=== PATIENT | female | born 1970 | race Caucasian/White ===

== ENCOUNTER → 2016-10-08 | Outpatient (CLI) | payer OTHER | LOC: CIMAGING 10:55 | PROVIDERS: ATTEND Family Medicine | DX: M25.551 Pain in right hip (principal) | CPT/HCPCS: 73502-PO ==

== ENCOUNTER 2016-10-11 20:29 | Emergency (ER) | payer OTHER ==
[2016-10-11] MEDS ORDERED: NS 1,000 ML IV ONE ×2 (20:51→21:28)
[2016-10-11 20:59] LABS: % IMMATURE GRANULYOCYTES 0.3 % (0.0-1.1); ABSOLUTE IMMATURE GRANULOCYTES 0.03 10^3/uL (0.00-0.10); ADD DIFF? NO; ADD MORPH? NO; ADD SCAN? NO; ATYPICAL LYMPHOCYTE FLAG 0 (0-99); FRAGMENT RBC FLAG 0 (0-99); HEMATOCRIT 42.5 % (38.0-47.0); HEMOGLOBIN 14.4 g/dL (12.6-16.3); LEFT SHIFT FLG 0 (0-99); LIPEMIA HEMOLYSIS FLAG 90 (0-99); MEAN CELL HEMOGLOBIN 31.2 pg (27.9-34.1); MEAN CELL HEMOGLOBIN CONCENTR. 33.9 g/dL (32.4-36.7); MEAN PLATELET VOLUME 9.1 fL (8.7-11.7); PLATELET CLUMPS FLAG 0 (0-99); PLATELET COUNT 371 10^3/uL (150-400); RED BLOOD CELL COUNT 4.62 10^6/uL (4.18-5.33); RED CELL DISTRIBUTION WIDTH 13.2 % (11.5-15.2)
[2016-10-11 21:07] VITALS: RESP 18; TEMP 98.1; O2SAT 96
--- NOTE | 2016-10-11 21:08 | UCPHY ---
H & P Patient Type: Established Time Seen by Provider: 10/11/16 21:00 HPI/ROS: CHIEF COMPLAINT: mild cough, lower abdominal distress, low-grade fever, persistent nausea HISTORY OF PRESENT ILLNESS: this is a medically complicated, 46-year-old female without a history of underlying gastroparesis. She has had diabetes for approximately 16 years. She notes that for 2 and half days now she has had general feeling of unwell, moderate nausea without vomiting, no diarrhea, and some mild suprapubic abdominal distress. There was some episodes of dysuria in the past 24 hours, but not every time she would urinate. She did take some azo dye in the hope that cleared up things. She has noted some decreased urinary output despite her sugars running in the 150-200 range. Thus today she push fluids taking approximately 2 quarts fluids. Her PE/DVT history is not correlated with postsurgical state. She had a spontaneous right upper extremity DVT that gave her an embolus. There was no PICC line associated with this P: Not worse standing or moving Q: Achiness R: Suprapubic without radiation S: [id number] T: For the last 2 and half days She is status post exploratory laparotomy for endometriosis and appendectomy many years ago REVIEW OF SYSTEMS: Constitutional: No fever, no chills. Eyes: No discharge ENT: No sore throat. Cardiovascular: No chest pain, no palpitations. Respiratory: Mild cough, bbut no shortness of breath, or wheezing. Gastrointestinal: See above. Genitourinary: No hematuria or frequency. Musculoskeletal: No back pain. Skin: No rashes. Neurological: No headache. 10 point ROS otherwise negative Source: Patient Exam Limitations: No limitations - Medical/Surgical History Hx Asthma: Yes Hx Chronic Respiratory Disease: No Hx Diabetes: Yes Hx Cardiac Disease: No Hx Renal Disease: No Hx Cirrhosis: No Hx Alcoholism: No Hx Splenectomy or Spleen Trauma: No Other PMH: IBS, seizures, PE and Blood Clots, Endometrosis, scholosis, appy, tubal, uterine ablation, ortho surgeries - Family History Significant Family History: No pertinent family hx - Social History Smoking Status: Never smoked Alcohol Use: None Drug Use: None - Physical Exam Exam: General Appearance: Alert, no distress. Afebrile. Normal phonation. No respiratory distress. Eyes: Pupils equal and round no pallor or injection. No icterus ENT, Mouth: Mucous membranes dry, tongue is yellow but she describes that to the yellow Gatorade she was drinking Pharynx without erythema or exudate. TM Clear. Neck: No adenopathy. Supple. No JVD. Trachea in midline. Respiratory: There are no retractions, lungs are clear to auscultation. Cardiovascular: Regular rate and rhythm, without murmur Abdomen: Soft bilateral lower quadrant tender, no masses, bowel sounds normal. Neurological: Ox3. No motor weakness. Sensation intact. Gait nl. Skin: Warm and dry, no rashes. Musculoskeletal: No joint swelling. Extremities: No edema. Homans sign negative. No cords. Psychiatric: Normal affect. Patient is oriented X 3, there is no agitation. Constitutional: Initial Vital Signs Temperature (C) 36.7 C 10/11/16 21:04 Heart Rate 80 10/11/16 21:04 Respiratory Rate 18 10/11/16 21:04 Blood Pressure 112/78 10/11/16 21:04 O2 Sat (%) 96 10/11/16 21:04 O2 Delivery Mode Room Air Allergies/Adverse Reactions: metformin Allergy (Verified 10/11/16 20:45) phenytoin sodium [From Dilantin] Allergy (Verified 10/11/16 20:45) phenytoin sodium extended [From Dilantin] Allergy (Verified 10/11/16 20:45) pneumococcal 23-valent polysacchari [From Pneumovax 23] Allergy (Verified 20:45) Home Medications: Medication Instructions Recorded Advair 250/50 (*) 04/30/16 Albuterol 04/30/16 Desiree Allergy 04/30/16 BIOTIN 04/30/16 Benzonatate 04/30/16 CYCLOBENZAPRINE HCL 04/30/16 Clonazepam 04/30/16 Coumadin 04/30/16 Creon 24 (*) 04/30/16 Dicyclomine 04/30/16 Drysol 04/30/16 FLUTICASONE PROPIONATE 04/30/16 Fish Oil 04/30/16 Humalog 04/30/16 Lantus Solostar 04/30/16 Lexapro 04/30/16 Oxycodone HCl 04/30/16 Oxycontin 04/30/16 PROMETHAZINE HCL 04/30/16 Promethazine HCl [Phenergan 50mg 50 mg NE Q6 PRN #3 suppr 04/30/16 supp (*)] Protonix 04/30/16 Singulair 04/30/16 Tricor 04/30/16 VITAMIN B COMPLEX 04/30/16 VITAMIN E 04/30/16 Vimpat 04/30/16 Vitamin D3 (*) 04/30/16 Medical Decision Making ED Course/Re-evaluation: She was given a L of normal saline over an hour and then another L over an hour and a half for total of 2 L for her volume depletion. She also received 8 mg of IV Zofran. Given the mild anion gap elevation as well as low CO2 though normal lactic acid , a serum beta hydroxybutyrate has been ordered. this is a "send out" to [facility]. Upon initial evaluation I recommended a chest x-ray given the cough and moderate fever at home as high as 101.6, as well as a CT scan of the abdomen given the mild suprapubic abdominal tenderness in the setting of fever as well, With a concern for diverticulitis. however, she has declined both. She is aware of the potential need for her to return, perhaps in a more dire clinical circumstance with worse prognosis. She has been warned, which she accepts and congenial fashion. Whereas she was seemingly going to stay for the full evaluation of the beta hydroxybutyrate, at 10:30 p.m. she was finished with the 2nd L of fluid and was ready to go home from her perspective thus did not want to stay for the final result. Furthermore, she should be signing out against medical advice as she declined the chest x-ray and CT scan which would be necessary for full evaluation. She was given a welcomed, reasoned invitation to return should she have 2nd thoughts. Ultimately, and fortunately, indeed the beta hydroxybutyrate result was normal as of 11:20 p.m. thus she received appropriate 2 L infusion while here. However workup remains to be unclear as there is no source of fever with potential sources not investigated such as pulmonary or GI/diverticulitis. Differential Diagnosis: Differential diagnosis includes, but is not limited to: Gastroenteritis, dehydration, diverticulitis, gastritis, mesenteric adenitis, food poisoning. - Data Points Laboratory Results: Laboratory Results 10/11/16 20:46 10/11/16 20:46 0410/11/16 10/11/16 21:35 20:50 20:46 WBC RBC Hgb Hct MCV MCH MCHC RDW Plt Count MPV Neut % (Auto) Lymph % (Auto) [place] % (Auto) Eos % (Auto) Baso % (Auto) Nucleat RBC Rel Count Absolute Neuts (auto) Absolute Lymphs (auto) Absolute Monos (auto) Absolute Eos (auto) Absolute Basos (auto) Absolute Nucleated RBC Immature Gran % Immature Gran # PT INR VBG Lactic Acid 1.5 mmol/L mmol/L (0.7-2.1) Sodium Potassium Chloride Carbon Dioxide Anion Gap BUN Creatinine Estimated GFR Glucose Calcium Beta-Hydroxybutyrate 0.06 mmol/L mmol/L (0.02-0.27) Urine Color YELLOW Urine Appearance CLEAR Urine pH 6.0 (5.0-7.5) Ur Specific [place] <= 1.005 (1.002-1.030) Urine Protein NEGATIVE (NEGATIVE) Urine Ketones NEGATIVE (NEGATIVE) Urine Blood NEGATIVE (NEGATIVE) Urine Nitrate NEGATIVE (NEGATIVE) Urine Bilirubin NEGATIVE (NEGATIVE) Urine Urobilinogen 0.2 EU EU (0.2-1.0) Ur Leukocyte Esterase NEGATIVE (NEGATIVE) Ur Culture Indicated? NOT INDICATED (NI) Urine Glucose NEGATIVE (NEGATIVE) 10/11/16 10/11/16 10/11/16 20:46 20:46 20:46 WBC 11.30 10^3/uL H 10^3/uL (3.80-9.50) RBC 4.62 10^6/uL 10^6/uL (4.18-5.33) Hgb 14.4 g/dL g/dL (12.6-16.3) Hct 42.5 % % (38.0-47.0) MCV 92.0 fL fL (81.5-99.8) MCH 31.2 pg pg (27.9-34.1) MCHC 33.9 g/dL g/dL (32.4-36.7) RDW 13.2 % % (11.5-15.2) Plt Count 371 10^3/uL 10^3/uL (150-400) MPV 9.1 fL fL (8.7-11.7) Neut % (Auto) 55.9 % % (39.3-74.2) Lymph % (Auto) 34.8 % % (15.0-45.0) [place] % (Auto) 6.9 % % (4.5-13.0) Eos % (Auto) 1.5 % % (0.6-7.6) Baso % (Auto) 0.6 % % (0.3-1.7) Nucleat RBC Rel Count 0.0 % % (0.0-0.2) Absolute Neuts (auto) 6.32 10^3/uL 10^3/uL (1.70-6.50) Absolute Lymphs (auto) 3.93 10^3/uL H 10^3/uL (1.00-3.00) Absolute Monos (auto) 0.78 10^3/uL 10^3/uL (0.30-0.80) Absolute Eos (auto) 0.17 10^3/uL 10^3/uL (0.03-0.40) Absolute Basos (auto) 0.07 10^3/uL 10^3/uL (0.02-0.10) Absolute Nucleated RBC 0.00 10^3/uL 10^3/uL (0-0.01) Immature Gran % 0.3 % % (0.0-1.1) Immature Gran # 0.03 10^3/uL 10^3/uL (0.00-0.10) PT 14.6 SEC SEC (12.0-15.0) INR 1.17 H (0.83-1.16) VBG Lactic Acid Sodium 140 mEq/L mEq/L (134-144) Potassium 4.1 mEq/L mEq/L (3.5-5.2) Chloride 104 mEq/L mEq/L (97-110) Carbon Dioxide 19 mEq/l L mEq/l (22-31) Anion Gap 17 mEq/L H mEq/L (8-16) BUN 13 mg/dL mg/dL (7-23) Creatinine 0.6 mg/dL mg/dL (0.6-1.0) Estimated GFR > 60 Glucose 152 mg/dL H mg/dL (70-100) Calcium 10.6 mg/dL H mg/dL (8.5-10.4) Beta-Hydroxybutyrate Urine Color Urine Appearance Urine pH Ur Specific [place] Urine Protein Urine Ketones Urine Blood Urine Nitrate Urine Bilirubin Urine Urobilinogen Ur Leukocyte Esterase Ur Culture Indicated? Urine Glucose Medications Given: Discontinued Medications Sodium Chloride (Ns) 1,000 mls @ 0 mls/hr IV ONCE ONE PRN Reason: Wide Open Stop: 10/11/16 20:52 Last Admin: 10/11/16 20:45 Dose: 1,000 mls Sodium Chloride (Ns) 1,000 mls @ 0 mls/hr IV ONCE ONE PRN Reason: As Directed Stop: 10/11/16 21:29 Last Admin: 10/11/16 21:45 Dose: 1,000 mls Ondansetron HCl (Zofran) 8 mg IVP ONCE ONE Stop: 10/11/16 21:56 Last Admin: 10/11/16 22:56 Dose: Not Given Departure - Departure Disposition: Home, Routine, Self-Care Clinical Impression: Dehydration, Fever by history Abdominal pain Qualifiers: Abdominal location: lower abdomen, unspecified Qualified Code(s): R10.30 - Lower abdominal pain, unspecified Condition: Good Instructions: Dehydration (ED), Acute Abdominal Pain (ED) Additional Instructions: You certainly may come back at any time, however you are being signed out against medical advice as you have not completed the full evaluation including the full labs as well as chest x-ray and CT scan there were recommended. Yes, we certainly can do those tests tomorrow if your symptoms continue, and you return.. In the meantime, continue her Zofran and Phenergan for symptomatic improvement of the nausea to have. Also, continue to monitor your blood sugars. Realized that her initial testing suggest there might be some acidemia in your blood which may require overnight ER hydration. This lab tests will not be back for another 30-45 minutes. When you are able to resume a normal diet, introduce foods progressively over the course of 24 hours. Starting 1st with clear liquids, then full liquids, then a soft foods, then regular diet. Referrals: NONE *PRIMARY CARE P,. [Primary Care Provider] - As per Instructions - PQRS PQRS Measurement: not applicable
[2016-10-11 21:21] LABS: INR 1.17 (0.83-1.16); PROTIME(PATIENT) 14.6 SEC (12.0-15.0)
[2016-10-11 21:34] LABS: ANION GAP 17 mEq/L (8-16); CALCIUM 10.6 mg/dL (8.5-10.4); CARBON DIOXIDE 19 mEq/l (22-31); CHLORIDE 104 mEq/L (97-110); CREATININE 0.6 mg/dL (0.6-1.0); GLOMERULAR FILTRATION RATE > 60; GLUCOSE 152 mg/dL (70-100); POTASSIUM 4.1 mEq/L (3.5-5.2); SODIUM 140 mEq/L (134-144)
[2016-10-11 21:41] LABS: COLOR YELLOW; LEUKOCYTE ESTERASE,URINE NEGATIVE (NEGATIVE); NITRITE,URINE NEGATIVE (NEGATIVE)
[2016-10-11 21:55] VITALS: BP 119/78; PULSE 84
[2016-10-11] MEDS ORDERED: ONDANSETRON 4 MG/2 ML VIAL IVP ONE (21:55)
== END 2016-10-11 22:52 | disposition home or self-care (01) ==
LOC: CED 20:29
DX: E86.0 Dehydration (principal); R10.30 Lower abdominal pain, unspecified; R50.9 Fever, unspecified; R11.0 Nausea; R30.0 Dysuria; K58.9 Irritable bowel syndrome, unspecified; N80.9 Endometriosis, unspecified
CPT/HCPCS: 80048-PO; 81003-PO; 83605-PO; 85025-PO; 85610-PO; 96360-PO; 96361-PO; 99215-PO; G0463-PO

== ENCOUNTER → 2017-04-29 | Outpatient (CLI) | payer OTHER | LOC: CIMAGING 17:18 | PROVIDERS: ATTEND Family Medicine | DX: M79.671 Pain in right foot (principal); M79.604 Pain in right leg | CPT/HCPCS: 73590-PO; 73630-PO ==

== ENCOUNTER 2017-10-20 18:23 | Emergency (ER) | payer OTHER ==
[2017-10-20] MEDS ORDERED: NS 2,000 ML IV ONE (18:39)
--- NOTE | 2017-10-20 18:43 | EDPHY ---
H & P Stated Complaint: Dehydrated, IDDM, showing ketones in urine. Time Seen by Provider: 10/20/17 18:32 HPI/ROS: CHIEF COMPLAINT: Dehydration HISTORY OF PRESENT ILLNESS: Patient is a 47-year-old female with a history of a chronically inflamed stomach as well as diabetes and states she has occasionally has gastroparesis. She comes to the emergency department and states that she has had abdominal cramping and diarrhea today and feels dehydrated. She turned down her insulin pump. Her sugars have been okay. She does not want a bunch of testing but simply wants to get hydrated. She has been taking anti nausea medicine at home. No fevers. REVIEW OF SYSTEMS: Constitutional: denies: chills, fever, recent illness, recent injury EENTM: denies: blurred vision, double vision, nose congestion Respiratory: denies: cough, shortness of breath Cardiac: denies: chest pain, irregular heart rate, lightheadedness, palpitations Gastrointestinal/Abdominal: See HPI Genitourinary: denies: dysuria, frequency, hematuria, pain Musculoskeletal: denies: joint pain, muscle pain Skin: denies: lesions, rash, jaundice, bruising Neurological: denies: headache, numbness, paresthesia, tingling, dizziness, weakness Hematologic/Lymphatic: denies: blood clots, easy bleeding, easy bruising Immunologic/allergic: denies: HIV/AIDS, transplant EXAM: GENERAL: Mild distress. Overweight HEAD: Atraumatic, normocephalic. EYES: Pupils equal round and reactive to light, extraocular movements intact, sclera anicteric, conjunctiva are normal. ENT: TMs normal, nares patent, oropharynx clear without exudates. Moist mucous membranes. NECK: Normal range of motion, supple without lymphadenopathy or JVD. LUNGS: Breath sounds clear to auscultation bilaterally and equal. No wheezes rales or rhonchi. HEART: Regular rate and rhythm without murmurs, rubs or gallops. ABDOMEN: Soft, nontender, normoactive bowel sounds. No guarding, no rebound. No masses appreciated. BACK: No CVA tenderness, no spinal tenderness, step-offs or deformities EXTREMITIES: Normal range of motion, no pitting or edema. No clubbing or cyanosis. NEUROLOGICAL: Cranial nerves II through XII grossly intact. Normal speech, normal gait. 5/5 strength, normal movement in all extremities, normal sensation PSYCH: Normal mood, normal affect. SKIN: Warm, dry, normal turgor, no visible rashes or lesions. Source: Patient Exam Limitations: No limitations - Personal History LMP (Females 10-55): Unknown Current Tetanus/Diphtheria Vaccine: Unsure Current Tetanus Diphtheria and Acellular Pertussis (TDAP): Unsure - Medical/Surgical History Hx Asthma: Yes Hx Chronic Respiratory Disease: No Hx Diabetes: Yes Hx Cardiac Disease: No Hx Renal Disease: No Hx Cirrhosis: No Hx Alcoholism: No Hx HIV/AIDS: No Hx Splenectomy or Spleen Trauma: No Other PMH: IDDM on pump, IBS, seizures, PE and Blood Clots, Endometrosis, scholosis, appy, tubal, uterine ablation, ortho surgeries. - Family History Significant Family History: No pertinent family hx - Social History Smoking Status: Never smoked Alcohol Use: Sober Drug Use: None Constitutional: Initial Vital Signs Temperature (C) 36.8 C 10/20/17 18:33 Heart Rate 104 H 10/20/17 18:33 Respiratory Rate 18 10/20/17 18:33 Blood Pressure 134/86 H 10/20/17 18:33 O2 Sat (%) 96 10/20/17 18:33 O2 Delivery Mode Room Air Allergies/Adverse Reactions: metformin Allergy (Verified 10/11/16 20:45) phenytoin sodium [From Dilantin] Allergy (Verified 10/11/16 20:45) phenytoin sodium extended [From Dilantin] Allergy (Verified 10/11/16 20:45) pneumococcal 23-valent polysacchari [From Pneumovax 23] Allergy (Verified 20:45) Home Medications: Medication Instructions Recorded Advair 250/50 (*) 04/30/16 Albuterol 04/30/16 Desiree Allergy 04/30/16 BIOTIN 04/30/16 Benzonatate 04/30/16 CYCLOBENZAPRINE HCL 04/30/16 Clonazepam 04/30/16 Coumadin 04/30/16 Creon 24 (*) 04/30/16 Dicyclomine 04/30/16 Drysol 04/30/16 FLUTICASONE PROPIONATE 04/30/16 Fish Oil 04/30/16 Humalog 04/30/16 Lantus Solostar 04/30/16 Oxycodone HCl 04/30/16 Oxycontin 04/30/16 PROMETHAZINE HCL 04/30/16 Promethazine HCl [Phenergan 50mg 50 mg CA Q6 PRN #3 suppr 04/30/16 supp (*)] Protonix 04/30/16 Singulair 04/30/16 Tricor 04/30/16 VITAMIN B COMPLEX 04/30/16 VITAMIN E 04/30/16 Vimpat 04/30/16 Vitamin D3 (*) 04/30/16 Medical Decision Making ED Course/Re-evaluation: 7:50 p.m. the patient is feeling much better. She is eager to go home. She states that she may have some diarrhea because of all the hydration but that she is used to this. She continues to refuse any further workup or treatment. She would like a copy of her labs to show her GI doctor. She declines prescriptions. Differential Diagnosis: Partial list of the Differential diagnosis considered include but were not limited to; dehydration, gastritis, DKA and although unlikely based on the history and physical exam, I also considered tumor, obstruction, ischemia, biliary disease. I discussed these differential diagnoses and the plan with the patient as well as the usual and expected course. The patient understands that the diagnosis is provisional and that in medicine we are not always correct and that further workup is often warranted. Usual and customary warnings were given. All of the patient's questions were answered. The patient was instructed to return to the emergency department should the symptoms at all worsen or return, otherwise to followup with the physician as we discussed. - Data Points Laboratory Results: Laboratory Results 10/20/17 18:45 10/20/17 18:45 Sodium 136 mEq/L mEq/L (135-145) Potassium 4.0 mEq/L mEq/L (3.5-5.2) Chloride 103 mEq/L mEq/L (97-110) Carbon Dioxide 23 mEq/l mEq/l (22-31) Anion Gap 10 mEq/L mEq/L (8-16) BUN 7 mg/dL mg/dL (7-23) Creatinine 0.6 mg/dL mg/dL (0.6-1.0) Estimated GFR > 60 Glucose 167 mg/dL H mg/dL (70-100) Calcium 10.1 mg/dL mg/dL (8.5-10.4) Medications Given: Discontinued Medications Sodium Chloride (Ns) 2,000 mls @ 0 mls/hr IV EDNOW ONE; Wide Open PRN Reason: Protocol Stop: 10/20/17 18:40 Last Admin: 10/20/17 18:53 Dose: 2,000 mls Departure - Departure Disposition: Home, Routine, Self-Care Clinical Impression: Dehydration Diarrhea Qualifiers: Diarrhea type: unspecified type Qualified Code(s): R19.7 - Diarrhea, unspecified Condition: Fair Instructions: Dehydration (ED), Acute Diarrhea (ED) Referrals: Manuel Zuluaga MD [Primary Care Provider] - As per Instructions
[2017-10-20 20:24] VITALS: BP 110/66
== END 2017-10-20 20:23 | disposition home or self-care (01) ==
LOC: CED 18:23
DX: R19.7 Diarrhea, unspecified (principal); E11.9 Type 2 diabetes mellitus without complications; J45.909 Unspecified asthma, uncomplicated; E86.9 Volume depletion, unspecified; Z79.4 Long term (current) use of insulin
CPT/HCPCS: 80048-PO

== ENCOUNTER → 2018-03-19 | Outpatient (CLI) | payer OTHER | LOC: CIMAGING 17:54 | DX: M41.85 Other forms of scoliosis, thoracolumbar region (principal); M47.896 Other spondylosis, lumbar region; M47.892 Other spondylosis, cervical region | CPT/HCPCS: 72050-PO; 72114-PO ==